=== PATIENT | male | born 1995 | race African-American/Black ===

== ENCOUNTER 2016-06-07 22:51 | Emergency (ER) | payer OTHER ==
[~2016-06-07] VITALS: Ht 182.9 cm; Wt 77.0 kg
[~2016-06-07 22:51] MED LIST: Z.0.NO CURRENT MEDS
[2016-06-07 22:57] VITALS: BP 151/87; PULSE 76; RESP 14; TEMP 98.3; O2SAT 98
[2016-06-08] MEDS ORDERED: TETANUS/DIPHTHERIA TOXOID ADULT 0.5 ML VIAL IM ONE
[2016-06-08] MEDS ORDERED: LIDOCAINE 1%/EPINEPHrine 1:100,000 SOLN 20 ML VIAL INFIL ONE
--- NOTE | 2016-06-08 00:28 | PD ---
HPI Chief Complaint: Head Injury Time Seen by Provider: 00:20 Travel History International Travel<30 days: No Contact w/Intl Traveler<30days: No Traveled to known affect area: No History of Present Illness HPI 21-year-old male presents for evaluation of a right parietal scalp laceration. He reports that prior to arrival he was moving a box in the box hit a metal pole which then fell and struck him in the head. Denies loss of consciousness. He did feel nauseous briefly but that resolved. He's had no vomiting. He denies any headache or pain at the site of laceration. He denies any confusion , amnesia, blurred vision. He denies any other injuries. His last tetanus vaccination is unknown. No other complaints. [facility] Past Medical History Medical History: Denies Significant Hx Diminished Hearing: No Immunizations Current: Yes Tetanus Vaccination: Unknown Influenza Vaccination: No Past Surgical History Surgical History: No Previous Surgery Social History Alcohol Use: Yes (SOCIALLY) Tobacco Use: No Substance Use: No Allergies-Medications (Allergen,Severity, Reaction): Coded Allergies: Penicillin (Verified Allergy, Severe, 06/07/16) Reported Meds & Prescriptions Reported Meds & Active Scripts Active No Active Prescriptions or Reported Medications Review of Systems Except as stated in HPI: all other systems reviewed are Neg Physical Exam Narrative GENERAL: Well-developed well-nourished male in no acute distress GCS 15 SKIN: Warm and dry. 1.5 cm right parietal scalp laceration. Linear. HEAD: Skin as noted above with no evidence of skull fracture. Normocephalic. EYES: Pupils equal and round. No scleral icterus. No injection or drainage. ENT: No nasal bleeding or discharge. Mucous membranes pink and moist. NECK: Trachea midline. No JVD. CARDIOVASCULAR: Regular rate and rhythm. No murmur appreciated. RESPIRATORY: No accessory muscle use. Clear to auscultation. Breath sounds equal bilaterally. NEUROLOGICAL: Awake and alert. No obvious cranial nerve deficits. Motor grossly within normal limits. Normal speech. Data Data Last Documented VS Vital Signs Date Time Temp Pulse Resp B/P Pulse Ox O2 Delivery O2 Flow Rate FiO2 06/07/16 23:41 16 100 Room Air 06/07/16 22:57 98.3 76 151/87 Orders Lidocai-Epi 1%-1:100,000 Inj (Xylocaine- (06/08/16 00:00) Tetanus/Diphtheria Tox Adult (Tetanus/Di (06/08/16 00:00) MDM Medical Decision Making Medical Screen Exam Complete: Yes Emergency Medical Condition: Yes Medical Record Reviewed: Yes Differential Diagnosis Scalp laceration, skull fracture, intracranial hemorrhage Narrative Course The patient appears to have an isolated parietal scalp laceration. His head is cleared by [place] CT criteria. The laceration will be repaired with choco, he verbally consents. Tetanus status updated. The patient is stable for discharge. Procedures Procedure Narrative LACERATION LOCATION: Right parietal scalp LENGTH: 1.5 cm NUMBER OF STITCHES/CHOCO: 4 REPAIR: The area of the laceration was prepped with Betadine and sterilely draped. The laceration was infiltrated with 1% lidocaine with epinephrine. The wound was copiously irrigated and explored without evidence of foreign body , tendon injury or neurovascular injury. The wound was closed using choco. This was a single layer repair. A sterile dressing was applied. The patient was advised to keep the dressing clean and dry. Patient tolerated the procedure well. Diagnosis Primary Impression: Scalp laceration Qualified Code: S01.01XA - Scalp laceration, initial encounter Additional Instructions: Wash the wound gently with soap and water and apply antibiotic cream daily. Return in 7-10 days for staple removal. Med/Other Pt SpecificInfo: Wound Care Scripts No Active Prescriptions or Reported Meds Disposition: 01 DISCHARGE HOME Condition: Stable Layo Bishop Jun 08, 2016 00:28
== END 2016-06-08 00:58 | disposition home or self-care (01) ==
LOC: NEPB 22:51
DX: S01.01XA Laceration without foreign body of scalp, initial encounter (principal); W20.8XXA Other cause of strike by thrown, projected or falling object, initial encounter; Y99.0 Civilian activity done for income or pay; Z23 Encounter for immunization
CPT/HCPCS: 12001; 90471; 90714